=== PATIENT | female | born 1995 | race Caucasian/White ===

== ENCOUNTER 2017-12-19 14:28 | Outpatient (CLI) | payer OTHER ==
[2017-12-19 15:51] LABS: Glucose,Urine (UA) Negative (Negative); Ketones,Urine Negative (Negative); Protein,Urine Negative (Negative)
[2017-12-19 15:59] LABS: Amphetamine Screen,Urine Not Detected (NotDetected); Barbiturate Screen,Urine Not Detected (NotDetected); Benzodiazepines Screen,Urine Not Detected (NotDetected); Cocaine Screen,Urine Not Detected (NotDetected); Methadone Screen, Urine Not Detected (NotDetected); Opiate Screen,Urine Not Detected (NotDetected); Oxycodone Screen, Urine Not Detected (NotDetected); Phencyclidine Screen,Urine Not Detected (NotDetected); Tricyclic Antidepressant,Urine Not Detected (NotDetected); Urn Cannabinoid Scrn Not Detected (NotDetected)
[2017-12-19 16:29] LABS: Appearance,Urine Clear (Clear); Bilirubin,Urine Negative (Negative); Blood,Urine Negative (Negative); Color,Urine Yellow; Glucose,Urine (UA) Negative (Negative); Ketones,Urine Negative (Negative); Leukocyte Esterase,Urine Negative (Negative); Nitrite,Urine Negative (Negative); Protein,Urine Negative (Negative); Specific Gravity,Urine 1.017 (1.001-1.035); Urobilinogen,Urine <2.0 mg/dL (<2.0)
--- NOTE | 2017-12-19 16:30 | US ---
EXAMINATION TYPE: US OB >= 14 wk fetus DATE OF EXAM: 12/19/2017 COMPARISON: None CLINICAL HISTORY: 22-year-old female no care. need complete edc /placenta etc TECHNIQUE: OBTA FINDINGS: GESTATIONAL AGE / DATING Physician Established: Not yet established, no care Dates by LMP: April or May Dates by First Scan: No previous this is first scan Dates by Current Scan: (29 weeks/0 days) EDC: 03/06/2018 SURVEY IUP: Single PLACENTA: Anterior PREVIA: No Previa NANCY: 16.5 cm Normal CERVICAL LENGTH (transabdominal: norm > 3.0cm): 3.0 cm BIOMETRY PRESENTATION: Vertex LIE: Longitudinal BPD: 7.3 cm 29 weeks / 1 days HC: 27.2 cm 29 weeks / 5 days AC: 26.4 cm 30 weeks / 4 days FL: 5.4 cm 28 weeks / 4 days ESTIMATED WEIGHT IN GRAMS: 1442 grams ESTIMATED WEIGHT IN LBS/OZ: 3 lbs. 3 oz. HC/AC: 1.0 Normal FL/AC: 20.4 Normal HEART RATE: 142 bpm RHYTHM: Normal IMPRESSION: 1. Single live intrauterine with average gestational age of 29 weeks 0 days by current ultr asound biometry. 2. Anterior placenta without evidence for placenta previa. Normal NANCY. Cephalic presentation. 3. Note that this exam was not performed as a survey.
[2017-12-19 18:18] VITALS: BP 111/56; PULSE 88; RESP 16; TEMP 98.4
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
== END 2017-12-19 17:30 | disposition home or self-care (01) ==
LOC: FBPOP 14:28
PROVIDERS: ATTEND Obstetrics & Gynecology
DX: O47.03 False labor before 37 completed weeks of gestation, third trimester (principal); Z3A.29 29 weeks gestation of pregnancy
CPT/HCPCS: 59025; 81003 ×2; 80306; 76805; G0463; 99213

== ENCOUNTER 2018-01-15 15:42 | Outpatient (CLI) | payer OTHER ==
--- NOTE | 2018-01-19 07:34 | P.MSEPDOC ---
Presenting Problems - Arrival Data Date of Arrival on Unit: 01/15/18 Time of Arrival on Unit: 15:42 Mode of Transport: Ambulatory Medical Screen Scoring (Post) - Uterine Contractions Frequency: > 5 minutes apart = 1 Duration: N/A Intensity: N/A - Maternal Vital Signs Maternal Temperature: N/A Maternal Blood Pressure: N/A Signs of Preeclampsia: N/A Maternal Respirations: N/A - Pain Assessment Pain Scale Used: Numeric (1 - 10) Pain Intensity: 0 - Assessment Heart Rate: 130 Heart Rate - NICHD Category: Category I (Normal) = 0 NST: Reactive Position: N/A Station: N/A - Total Score Total Score (Post): 1 - Post Treatment Level of Risk Post Treatment Level of Risk: Low (0-5) Physician Notification (Post) - Physician Notified Physician Notified Date: 01/15/18 Physician Notified Time: 18:30 Physician/Practitioner Notified:: Dr George Spoke With: Dr George New Order Received: Yes - Notification Comment Comment: D/C home Disposition - Disposition OB Disposition: Discharge to home Discharge Date: 01/15/18 Discharge Time: 18:40 I agree with the RN Medical Screening Exam: No Physician's MSE Comment: This MSE is incomplete. This patient presented after falling down 3 steps. She had mild pain on the surface of her abdomen but not with deep palpation. She was monitored for 4 hours after the fall and was found sleeping soundly in triage. She was sent home in stable condition. Risk & Benefit of care provided described in d/c instruction: Yes Diagnosis: ACUTE PAIN DUE TO TRAUMA
== END 2018-01-15 18:40 | disposition home or self-care (01) ==
LOC: FBPOP 15:42
PROVIDERS: ATTEND Obstetrics & Gynecology
DX: O99.89 Other specified diseases and conditions complicating pregnancy, childbirth and the puerperium (principal); G89.11 Acute pain due to trauma; Z3A.00 Weeks of gestation of pregnancy not specified
CPT/HCPCS: 59025; G0463; 99213

== ENCOUNTER 2018-01-16 22:32 | Outpatient (CLI) | payer OTHER ==
[2018-01-16 23:23] VITALS: BP 121/71; PULSE 110; RESP 16; TEMP 97.6
--- NOTE | 2018-01-17 01:31 | P.MSEPDOC ---
Presenting Problems - Arrival Data Date of Arrival on Unit: 01/16/18 Time of Arrival on Unit: 22:32 Mode of Transport: Wheelchair - Complaint OB-Reason for Admission/Chief Complaint: Decreased Movement Medical History - Information : 2 Para: 1 Term: 1 : 0 Abortions: Spontaneous or Elective: 0 Number of Living Children: 1 - Gestational Age Gestational Age by SHARMIN (wks/days): 33 Weeks and 0 Days - History Complications: Smoker, Hx. Substance Abuse Comment: Pt was in rehab for amphetamine use and was d/c on 11/29/2017 Review of Systems - Review of Systems Constitutional: No problems Breast: No problems ENT: No problems Cardiovascular: No problems Respiratory: No problems Gastrointestinal: No problems Genitourinary: No problems Musculoskeletal: No problems Neurological: No problems Skin: No problems Vital Signs - Temperature Temperature: 97.6 F Temperature Source: Temporal Artery Scan - Pulse Right Brachial Pulse Rate: 110 Pulse Assessment Method: Automatic Cuff - Respirations Respiratory Rate: 16 Oxygen Delivery Method: Room Air O2 Sat by Pulse Oximetry: 98 - Blood Pressure Right Arm Blood Pressure: 121/71 Blood Pressure Mean: 87 Blood Pressure Source: Automatic Cuff Medical Screen Scoring (Pre) - Cervical Exam Dilation: Exam Deferred Effacement: Exam Deferred Membranes: Intact - Uterine Contractions Frequency: N/A Duration: N/A Intensity: N/A - Maternal Vital Signs Maternal Temperature: N/A Maternal Blood Pressure: N/A Signs of Preeclampsia: N/A Maternal Respirations: N/A - Pain Assessment Pain Location and Character: Lower, Abdomen Pain Scale Used: Numeric (1 - 10) Pain Intensity: 8 Pain Description: Sharp Pain Frequency: Intermittent Pain Duration Units: Minutes Pain Behavior: None Exhibited Pain Aggravating Factors: None - Maternal Trauma Maternal Trauma: N/A - Assessment Baseline FHR: 135 Heart Rate - NICHD Category: Category I (Normal) = 0 NST: Reactive Position: N/A Station: N/A - Total Score Total Score (Pre): 0 - Level of Risk Level of Risk: Low (0-5) Physician Notification (Pre) - Physician Notified Physician Notified Date: 01/16/18 Physician Notified Time: 23:02 Physician/Practitioner Notifed:: Dr. Knox Spoke With: Dr. Knox New Order Received: Yes - Notification Comment Comment: Dr. Knox given report on pt in tr. Pt c/o. VS wnl. reactive nst. movement noted per nurse audibly and palpation. movement felt per pt. no. contractions noted. Orders recieved to d/c pt to home and instruct pt to consult with her DrCarmelo Disposition - Disposition OB Disposition: Discharge to home Discharge Date: 01/16/18 Discharge Time: 23:05 I agree with the RN Medical Screening Exam: Yes Risk & Benefit of care provided described in d/c instruction: Yes Diagnosis: DECREASED MOVEMENTS, THIRD TRIMESTER, FETUS 1
== END 2018-01-16 23:05 | disposition home or self-care (01) ==
LOC: FBPOP 22:32
PROVIDERS: ATTEND Obstetrics & Gynecology
DX: O36.8130 Decreased fetal movements, third trimester, not applicable or unspecified (principal); Z3A.33 33 weeks gestation of pregnancy
CPT/HCPCS: 59025; G0463; 99213

== ENCOUNTER 2018-03-02 23:00 | Outpatient (CLI) | payer OTHER ==
[2018-03-03] VITALS: BP 125/74; PULSE 103; RESP 16; TEMP 98.8
--- NOTE | 2018-03-03 07:25 | P.MSEPDOC ---
Presenting Problems - Arrival Data Date of Arrival on Unit: 03/02/18 Time of Arrival on Unit: 23:04 Mode of Transport: Wheelchair - Complaint OB-Reason for Admission/Chief Complaint: Possible Onset of Labor Comment: states contx started about an hour ago and are 7-8 minutes apart. Medical History - Information : 2 Para: 1 Term: 1 : 0 Abortions: Spontaneous or Elective: 0 Number of Living Children: 1 - Gestational Age Gestational Age by SHARMIN (wks/days): 39 Weeks and 3 Days - History Complications: Smoker, Hx. Substance Abuse Comment: pt has hx of amphetamine use with . currently living in a recovery house. Review of Systems - Review of Systems Constitutional: No problems Breast: No problems ENT: No problems Cardiovascular: No problems Respiratory: No problems Gastrointestinal: No problems Genitourinary: No problems Musculoskeletal: No problems Neurological: No problems Skin: No problems Vital Signs - Temperature Temperature: 98.8 F Temperature Source: Temporal Artery Scan - Pulse Right Sitting Brachial Pulse Rate: 103 Pulse Assessment Method: Automatic Cuff - Respirations Respiratory Rate: 16 Oxygen Delivery Method: Room Air - Blood Pressure Right Arm Sitting Blood Pressure: 125/74 Blood Pressure Mean: 91 Blood Pressure Source: Automatic Cuff Medical Screen Scoring (Pre) - Uterine Contractions Frequency: > 5 minutes apart = 1 Duration: > 40 seconds = 2 Intensity: N/A - Maternal Vital Signs Maternal Temperature: N/A Signs of Preeclampsia: N/A Maternal Respirations: N/A - Pain Assessment Pain Location and Character: Medial, Abdomen Pain Scale Used: Numeric (1 - 10) Pain Intensity: 4 Pain Management Goal: 3 Pain Description: *Acute, Cramping Pain Radiation Location: n/a Pain Frequency: Occasional Pain Duration: 1 Pain Duration Units: Hours Pain Behavior: None Exhibited Pain Aggravating Factors: None - Assessment Baseline FHR: 125 Heart Rate - NICHD Category: Category I (Normal) = 0 NST: Reactive Position: N/A Station: N/A - Total Score Total Score (Pre): 3 - Level of Risk Level of Risk: Low (0-5) Physician Notification (Pre) - Physician Notified Physician Notified Date: 03/02/18 Physician Notification (Post) - Physician Notified Physician Notified Date: 03/02/18 Physician Notified Time: 23:35 Spoke With: Knox New Order Received: Yes (d/c) - Notification Comment Comment: 2 cm, 2 ctx in 30 min, reactive Disposition - Disposition OB Disposition: Discharge to home, Written follow up instructions reviewed Discharge Date: 03/02/18 Discharge Time: 23:45 I agree with the RN Medical Screening Exam: Yes Risk & Benefit of care provided described in d/c instruction: Yes Diagnosis: FALSE LABOR AT OR AFTER 37 COMPLETED WEEKS OF GESTATION
== END 2018-03-02 23:45 ==
LOC: FBPOP 23:00
PROVIDERS: ATTEND Obstetrics & Gynecology
DX: O47.1 False labor at or after 37 completed weeks of gestation (principal); O99.333 Smoking (tobacco) complicating pregnancy, third trimester; Z3A.39 39 weeks gestation of pregnancy
CPT/HCPCS: 59025; G0463; 99213